=== PATIENT | male | born 1960 | race Caucasian/White ===

== ENCOUNTER 2018-04-19 14:12 | Emergency (ER) | payer OTHER ==
[~2018-04-19] VITALS: Ht 177.8 cm; Wt 97.8 kg
[2018-04-19 18:42] VITALS: BP 126/87
== END 2018-04-19 18:43 | disposition home or self-care (01) ==
LOC: EME 14:12
DX: M79.604 Pain in right leg (principal); E11.9 Type 2 diabetes mellitus without complications; E78.5 Hyperlipidemia, unspecified
CPT/HCPCS: 93971; 99281; 99283